=== PATIENT | female | born 1995 | race Two or more races ===

== ENCOUNTER 2018-06-17 22:12 | Outpatient (CLI) | payer OTHER ==
[2018-06-19] MEDS ORDERED: PRENATAL FORMU1 EAC1 PO (19:36)
[2018-06-19] MEDS ORDERED: IRON325 MG PO (19:37)
== END 2018-06-18 14:33 | disposition home or self-care (01) ==
LOC: OBS/DEL 22:12 → LDR 06-18 00:59 → OBS/DEL 06-18 00:59
DX: O47.1 False labor at or after 37 completed weeks of gestation (principal); Z34.03 Encounter for supervision of normal first pregnancy, third trimester

== ENCOUNTER 2018-06-19 18:10 | Outpatient (CLI) | payer OTHER ==
[2018-06-19] MEDS ORDERED: PRENATAL FORMU1 EAC1 PO (19:36)
[2018-06-19] MEDS ORDERED: IRON325 MG PO (19:37)
== END 2018-06-20 17:00 | disposition home or self-care (01) ==
LOC: OBS/DEL 18:10
DX: O47.1 False labor at or after 37 completed weeks of gestation (principal); Z34.03 Encounter for supervision of normal first pregnancy, third trimester

== ENCOUNTER 2018-06-26 12:06 | Inpatient (IN) | payer OTHER ==
[~2018-06-26] VITALS: Ht 152.4 cm; Wt 139.0 kg
[~2018-06-26 12:06] MED LIST: IRON325 MG PO; PRENATAL FORMU1 EAC1 PO
== END 2018-06-29 16:32 | DRG 775 ==
LOC: OB/GYN 12:06 → LDR 12:06 → OB/GYN 15:00
PROC: 10E0XZZ Delivery of Products of Conception, External Approach (ICD-10-PCS; principal; 2018-06-26)
PROC: 4A033R1 Measurement of Arterial Saturation, Peripheral, Percutaneous Approach (ICD-10-PCS; 2018-06-26)
PROC: 4A1HXCZ Monitoring of Products of Conception, Cardiac Rate, External Approach (ICD-10-PCS; 2018-06-26)
DX: O80 Encounter for full-term uncomplicated delivery (principal); Z3A.39 39 weeks gestation of pregnancy; Z37.0 Single live birth; Z22.330 Carrier of Group B streptococcus

== ENCOUNTER 2019-10-30 12:09 | Emergency (ER) | payer OTHER ==
[~2019-10-30] VITALS: Ht 152.4 cm; Wt 53.5 kg
== END 2019-10-30 16:04 | disposition home or self-care (01) ==
LOC: ER 12:09
DX: R10.11 Right upper quadrant pain (principal); R10.31 Right lower quadrant pain; N39.0 Urinary tract infection, site not specified; B96.1 Klebsiella pneumoniae [K. pneumoniae] as the cause of diseases classified elsewhere

== ENCOUNTER 2019-11-01 04:03 | Inpatient (IN) | payer OTHER ==
[~2019-11-01] VITALS: Ht 152.4 cm; Wt 52.2 kg
[2019-11-04] MEDS ORDERED: AMOX1TAB5 PO (18:24)
== END 2019-11-04 18:25 | disposition home or self-care (01) | DRG 833 ==
LOC: ER 04:03 → OB/GYN 17:18 → SEC-K 17:18 → OB/GYN 18:28
PROVIDERS: ADMIT Obstetrics & Gynecology
PROC: BY49ZZZ Ultrasonography of First Trimester, Single Fetus (ICD-10-PCS; principal; 2019-11-01)
PROC: BT4JZZZ Ultrasonography of Kidneys and Bladder (ICD-10-PCS; 2019-11-01)
DX: O23.01 Infections of kidney in pregnancy, first trimester (principal); O23.31 Infections of other parts of urinary tract in pregnancy, first trimester; R31.0 Gross hematuria; B96.1 Klebsiella pneumoniae [K. pneumoniae] as the cause of diseases classified elsewhere